=== PATIENT | female | born 1950 | race Caucasian/White ===

== ENCOUNTER 2024-08-18 18:32 | Emergency (ER) | payer OTHER, MEDICAID ==
[2024-08-18] MEDS ORDERED: HYDROcodone/Acetaminophen 5/325 mg Tablet ONE (19:51)
== END 2024-08-18 20:28 | disposition home or self-care (01) ==
LOC: BURERS 18:32
DX: S82.401A Unspecified fracture of shaft of right fibula, initial encounter for closed fracture (principal); X58.XXXA Exposure to other specified factors, initial encounter
CPT/HCPCS: 99283